=== PATIENT | female | born 1990 | race Two or more races ===

== ENCOUNTER 2023-05-02 00:57 | Emergency (ER) | payer OTHER ==
[~2023-05-02] VITALS: Ht 162.6 cm; Wt 51.9 kg
[2023-05-02] MEDS ORDERED: ALDACTONE25 MG PO (01:08)
[2023-05-02] MEDS ORDERED: PYRIDIUM DS200 MG PO (04:56)
[2023-05-02] MEDS ORDERED: CIPRO500 MG PO (04:56)
== END 2023-05-02 05:01 ==
LOC: ER 00:57
DX: N30.90 Cystitis, unspecified without hematuria (principal)